=== PATIENT | female | born 1955 | race Caucasian/White ===

== ENCOUNTER → 2019-04-30 | Outpatient (CLI) | payer OTHER ==
--- NOTE | 2019-04-30 16:01 | Diagnostic Imaging Report ---
INDICATION: Cellulitis. COMPARISON: None. FINDINGS: Three views of the right foot were obtained. There is generalized soft tissue edema, greatest overlying the midfoot. Note is also made of focal area of soft tissue emphysema seen laterally projecting over the proximal fifth metatarsal. Note is made of poor definition of the most proximal tip of the fifth metatarsal concerning for underlying osteolysis. No other acute osseous abnormality is seen. Osseous structures are otherwise intact. Joint spaces are maintained. No unexpected radiopaque foreign bodies are seen. IMPRESSION: 1. Soft tissue swelling with emphysema of the lateral right mid foot. 2. Area of poor definition of the most proximal margins of the fifth metatarsal concerning for underlying osteolysis/osteomyelitis. Correlation with MRI is recommended. Dictated by: Dictated on workstation # [id number]
== END ==
LOC: RAD 15:18
PROVIDERS: ATTEND Family Medicine
DX: L03.115 Cellulitis of right lower limb (principal)
CPT/HCPCS: 73630